=== PATIENT | female | born 1965 | race Caucasian/White ===

== ENCOUNTER 2019-01-10 06:26 | Day surgery (SDC) | payer MEDICARE ==
[~2019-01-10] VITALS: Ht 172.7 cm; Wt 112.5 kg
[2019-01-10] MEDS ORDERED: PROTAMINE SULFATE 10 MG/ML, 5ML ONE (06:51)
[2019-01-10] MEDS ORDERED: HEPARIN 1,000 UNITS/ML, 10ML ONE (06:51)
[2019-01-10] MEDS ORDERED: SODIUM CHLORIDE 0.9% 1,000 ML IV SCH (07:18)
[2019-01-10 07:25] VITALS: BP 131/95
[2019-01-10] MEDS ORDERED: SODI650T PO (07:38)
[2019-01-10] MEDS ORDERED: PANT40TA5 PO (07:38)
[2019-01-10] MEDS ORDERED: FERR325T18 PO (07:38)
[2019-01-10] MEDS ORDERED: ACET-1600 PO (07:38)
[2019-01-10] MEDS ORDERED: AMLO-150 PO (07:38)
[2019-01-10] MEDS ORDERED: VENL75TA PO (07:38)
[2019-01-10] MEDS ORDERED: CHOL10003 PO (07:38)
[2019-01-10] MEDS ORDERED: LOSA100T2 PO (07:38)
[2019-01-10] MEDS ORDERED: FURO20TA3 PO (07:38)
[2019-01-10] MEDS ORDERED: KENALOG TP (07:38)
[2019-01-10] MEDS ORDERED: SODI51CR7 TP (07:38)
[2019-01-10] MEDS ORDERED: MIDAZOLAM 1 MG/ML, 2ML ONE (07:43)
[2019-01-10] MEDS ORDERED: FENTANYL PF 250 MCG/5ML ONE (07:44)
[2019-01-10] MEDS ORDERED: ONDANSETRON 2MG/ML, 2ML ONE (07:44)
[2019-01-10] MEDS ORDERED: SODIUM CHLORIDE 0.9% PF 10ML ONE (07:45)
[2019-01-10] MEDS ORDERED: CEFAZOLIN 1,000 MG ONE ×2 (07:45)
[2019-01-10] MEDS ORDERED: PROPOFOL 10 MG/ML, 20ML ONE (07:45)
[2019-01-10 07:55] LABS: INTERNATIONAL NORMALIZED RATIO 0.97 (0.93-1.1); PROTHROMBIN TIME 10.3 Seconds (9.6-11.5)
[2019-01-10] MEDS ORDERED: DEXAMETHASONE 4 MG/ML, 1ML ONE ×2 (08:48)
[2019-01-10] MEDS ORDERED: PROMETHAZINE 12.5 MG SUPP PR PRN (09:00)
[2019-01-10] MEDS ORDERED: MORPHINE SULFATE 4 MG/ML, 1ML IVPush PRN (09:00)
[2019-01-10] MEDS ORDERED: OXYcodone 5 MG/5 ML ORAL.SOL UDC PO PRN (09:00)
[2019-01-10] MEDS ORDERED: PROMETHAZINE 25 MG/ML, 1ML IM PRN ×2 (09:00)
[2019-01-10] MEDS ORDERED: hydrALAzine 20 MG/ML, 1ML IV PRN (09:00)
[2019-01-10] MEDS ORDERED: PROMETHAZINE 25 MG/ML, 1ML IV PRN (09:00)
[2019-01-10] MEDS ORDERED: PROMETHAZINE 25 MG SUPP PR PRN (09:00)
[2019-01-10] MEDS ORDERED: ONDANSETRON 2MG/ML, 2ML IV PRN (09:00)
[2019-01-10] MEDS ORDERED: HYDROmorphone 2 MG/ML, 1ML IVPush PRN (09:00)
[2019-01-10] MEDS ORDERED: LABETALOL 5MG/ML, 20ML IV PRN (09:00)
[2019-01-10] MEDS ORDERED: ONDANSETRON ODT 8 MG PO PRN (09:00)
[2019-01-10] MEDS ORDERED: FENTANYL PF 100 MCG/2ML IV PRN (09:00)
[2019-01-10] MEDS ORDERED: OXYcodone 5 MG/5 ML ORAL.SOL UDC ONE (09:42)
[2019-01-10] MEDS ORDERED: FENTANYL PF 100 MCG/2ML ONE (09:45)
== END 2019-01-10 11:55 | disposition home or self-care (01) ==
LOC: OUT 06:26
PROVIDERS: ATTEND Surgery Vascular Surgery
DX: I12.0 Hypertensive chronic kidney disease with stage 5 chronic kidney disease or end stage renal disease (principal); N18.6 End stage renal disease; K21.9 Gastro-esophageal reflux disease without esophagitis
CPT/HCPCS: 36415; 36821; 80047; 85610; 85730; J0690; J1100; J1644; J2250; J2405; J2704; J3010; J7030; J2720